=== PATIENT | male | born 1945 | race African-American/Black ===

== ENCOUNTER 2023-06-28 05:09 | Inpatient (IN) | payer MEDICARE, SELFPAY ==
[2023-06-28] VITALS (52 sets, daily range): BP systolic 116–164; BP diastolic 52–87; PULSE 75–97; RESP 9–21; TEMP 36.4–36.6; O2SAT 97–100
--- NOTE | ~2023-06-28 | XR_ITS ---
XR chest 1V portable 06/28/2023 06:06 Indication: Altered mental status Procedure: AP view of the chest Comparison: No prior studies for comparison. Findings: Heart size normal. Emphysema. There is a skinfold overlying the right chest wall. Mildly el evated left diaphragm. No focal air space disease, pulmonary edema, pleural effusion or suspected pne umothorax. Impression: 1: No acute cardiopulmonary disease. Reviewed, dictated and finalized at location A. CTOR OF RECRUITMENT Impression: 1: No acute cardiopulmonary disease.
--- NOTE | ~2023-06-28 | MR_ITS ---
EXAMINATION: MR brain/brain stem wo con DATE: 06/30/2023 09:14 INDICATION: Altered mental status. TECHNIQUE: Magnetic resonance imaging (MRI) of the brain and brainstem was performed without intraven ous contrast. COMPARISON: Head CT 06/28/2023 FINDINGS: There is a small old infarct in right cerebellum. There are old infarcts involving the bila teral basal ganglia and internal capsules and right thalamus. There are scattered areas of nonspecifi c increased T2-weighted signal intensity in the cerebral white matter. There is no intracranial hemor rhage, acute infarction, or abnormal intracranial mass lesion. There is ex vacuo dilatation of the la teral ventricles. The orbits are normal. The paranasal sinuses are clear. The mastoid air cells are n ormal. IMPRESSION: 1. 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 2. Extensive nonspecific cerebral white matter disease, which likely represents chronic small vessel ischemic disease. Reviewed, dictated and finalized at location A. DATION DRILL OPERATOR HELPER IMPRESSION: 1. 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 2. Extensive nonspecific cerebral white matter disease, which likely represents chronic small vessel ischemic disease.
--- NOTE | ~2023-06-28 | CT_ITS ---
EXAMINATION: CT brain wo con DATE: 06/28/2023 05:58 INDICATION: Altered mental status TECHNIQUE: Computed tomography (CT) of the head was performed without intravenous contrast. The dose- length product was 681.00 mGy-cm. Automated exposure control and iterative reconstruction technique w ere employed. COMPARISON: None FINDINGS: Generalized atrophy. Chronic bilateral lacunar infarctions. There are scattered moderate pe riventricular and subcortical white matter changes, most likely related to small vessel ischemic dise ase (microangiopathy). No ventriculomegaly or midline shift. Basilar cisterns are patent. There is in tracranial atherosclerosis. Paranasal sinuses and mastoids are pneumatized. No depressed skull fractu res. IMPRESSION: 1. No acute intracranial abnormality. 2: Chronic bilateral lacunar infarctions. 3: Chronic age-related findings. Reviewed, dictated and finalized at location A. GER ANALYTICAL
--- NOTE | 2023-06-28 05:21 | ECG_ITS ---
Measurements Intervals [place] Rate: 81 P: 74 UT: 134 QRS: -68 QRSD: 135 T: 68 QT: 424 QTc: 494 Interpretive Statements SINUS RHYTHM WITH SINUS ARRHYTHMIA ATRIAL PREMATURE COMPLEX RIGHT BUNDLE BRANCH BLOCK LEFT ANTERIOR FASCICULAR BLOCK CANNOT RULE OUT SEPTAL INFARCT, AGE INDETERMINATE BASELINE ARTIFACT- I, II, V1-V2 ABNORMAL ECG NO PREVIOUS ECG AVAILABLE FOR COMPARISON Electronically Signed On 06-28-2023 6:53:46 WARP DOFFER by Angel Butler D.O.
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
[2023-06-28] MEDS: SODIUM CHLORIDE 0.9% IV 1,000 ML 999 ML IV CONT ×2 (06:51→10:01)
[2023-06-28 07:00] LABS: Basophils Percent Auto 0.3 % (0.2-1.2); Eosinophils Percent Auto 0.1 % (0-4.4); Hematocrit 37.8 % (42.0-52.0); Immature Granulocyte Absolute 0.04 K/mm3 (0.00-0.031); Immature Granulocyte Percent A 0.4 % (0-0.5); Lymphocytes Absolute Auto 1.51 K/mm3 (0.9-3.2); Lymphocytes Percent Auto 13.4 % (18.3-44.2); Mean Corpuscular HGB Conc 31.7 g/dl (32-36); Mean Corpuscular Hemoglobin 29.3 pg (26-34); Mean Corpuscular Volume 92.4 fl (80-100); Mean Platelet Volume 9.1 fl (7.4-10.4); Monocytes Absolute Auto 0.6 K/mm3 (0.1-0.6); Monocytes Percent Auto 5.3 % (2.6-8.5); Neutrophils Absolute Auto 9.1 K/mm3 (1.3-6.7); Neutrophils Percent Auto 80.5 % (45.5-73.1); Platelet Count Result 379 k/mm3 (150-375); Red Blood Count 4.09 M/mm3 (4.6-6.20); Red Cell Distribution Width 14.8 % (11.5-14.5); White Blood Count 11.3 K/mm3 (4.5-10.0)
[2023-06-28 07:10] LABS: Prothrombin Time 13.6 Seconds (11.1-14.7)
[2023-06-28 07:11] LABS: Partial Thromboplastin Time 32.3 SECONDS (22.3-36.8)
[2023-06-28 07:12] LABS: Alanine Aminotransferase 17 U/L (6-50); Albumin Level 4.1 g/dL (3.5-5.1); Alkaline Phosphatase 101 U/L (38-126); Anion Gap 8 mmol/L (8-16); Aspartate Amino Transferase 41 U/L (17-59); Bilirubin,Total 0.8 mg/dL (0.2-1.3); Blood Urea Nitrogen 24 mg/dL (9-20); Calcium 9.8 mg/dL (8.4-10.2); Carbon Dioxide 26 mmol/L (22-30); Chloride 103 mmol/L (98-107); Estimated CRCL calculation 53 ml/min; Estimated Glomerular Filt Rate > 60; Glucose 87 mg/dL (65-110); Lipase 29 U/L (23-300); Magnesium 2.3 mg/dL (1.6-2.3); Potassium 4.3 mmol/L (3.4-5.0); Sodium 137 mmol/L (137-145)
[2023-06-28 07:16] LABS: Lactic Acid Reflex 1.7 mmol/L (0.7-2.0)
[2023-06-28 07:23] LABS: Ethanol < 10 mg/dL (<10)
[2023-06-28 07:24] LABS: Troponin I < 0.012 ng/mL (0.000-0.034)
[2023-06-28 07:37] LABS: Influenza A QL RT-PCR Negative (Negative); Influenza B QL RT-PCR Negative (Negative); RSV RNA, RT-PCR Negative (Negative); SARS-CoV-2 RNA PCR Negative (Negative)
[2023-06-28 07:44] LABS: Procalcitonin 0.3 ng/mL
--- NOTE | 2023-06-28 08:09 | PC.NURSE ---
provider requesting information regarding patient. called patient's brother, Rubén [phone], he states that last known, patient was in [facility] on friday. he was also states he was recently in the hospital in [place] and had a feeding tube placed, however, patient does not currently have a feeding tube and does not have any scars to indicate on was once placed. patient's brother was elderly and states that their sister recently and patient does not have any other family to contact. called [facility] [phone] and was given 2 numbers to call that are in the nearest proximity to the zip code of patient's current home address, as they would not give any patient information called [facility] [phone], left message to return call called [facility] in [facility] [phone], no information was given d/t HIPAA. she did state that she had no information for next of kin but the address of the patient matches the address that they have on file. no further useful information was able to be obtained at this time
--- NOTE | 2023-06-28 09:24 | PC.NURSE ---
attempted to straight cath patient to obtain urine sample. no urine return. bladder scan with 50ml noted. provider aware
[2023-06-28] MEDS: Please add drug allergy info to patient profile. 1 EACH XX (10:02)
--- NOTE | 2023-06-28 10:41 | ECG_ITS ---
Measurements Intervals [place] Rate: 82 P: 54 TX: 104 QRS: -68 QRSD: 138 T: 66 QT: 442 QTc: 516 Interpretive Statements SINUS RHYTHM WITH SINUS ARRHYTHMIA SHORT [place] INTERVAL ATRIAL PREMATURE COMPLEXES RIGHT BUNDLE BRANCH BLOCK LEFT ANTERIOR FASCICULAR BLOCK CANNOT RULE OUT SEPTAL INFARCT, AGE INDETERMINATE BASELINE ARTIFACT- I, II, III, AVR, AVL, V1, V3-V6 ABNORMAL ECG COMPARED TO ECG 06/28/2023 05:46:52 NO SIGNIFICANT CHANGES Electronically Signed On 06-29-2023 7:54:25 PILL MAKER by Angel Butler D.O.
[2023-06-28 11:25] LABS: Appearance Urine Clear (Clear); Bacteria Urine None Seen /hpf; Bilirubin Urine Negative (Negative); Color Urine Yellow (Yellow); Glucose Urine UA Negative (Negative); Ketones Urine 2+ mg/dL (Negative); Leukocyte Esterase Ur 1+ LEU/UL (Negative); Nitrate Urine Negative (Negative); Protein Urine Negative (Negative); Specific Grav Ur 1.016 (1.001-1.035); Squamous Epithelial Cell Urine None seen /hpf (Few); pH Urine 5.5 (5.0-9.0)
[2023-06-28 11:28] LABS: Add Urine Microscopic? YES
--- NOTE | 2023-06-28 11:36 | PC.NURSE ---
called to add on UDS
[2023-06-28 11:44] LABS: Troponin I < 0.012 ng/mL (0.000-0.034)
--- NOTE | 2023-06-28 11:56 | PC.NURSE ---
several attempts at contacting police department in [place], was able to contact lens lathe operator #[id number] at [phone] and he will send someone to his residence and return call with update.
[2023-06-28 12:16] LABS: Barbiturate Screen Urine Negative (Negative); Benzodiazepines Screen Urine Negative (Negative)
[2023-06-28 12:17] LABS: Amphetamine Screen Urine Negative (Negative); Cocaine Screen Urine Negative (Negative); Methadone Screen Urine Negative (Negative); Opiate Screen Urine Negative (Negative); Phencyclidine Screen Urine Negative (Negative)
[2023-06-28 12:25] LABS: Cannabinoid Screen Urine Negative (Negative)
--- NOTE | 2023-06-28 12:47 | PC.NURSE ---
Per PD in [place], patient lives alone and there is no one to contact in regards to him. he does have mental issues and is very familiar to the PD.
[2023-06-28] MEDS: SODIUM CHLORIDE 0.9% IV 1,000 ML 125 ML IV CONT ×2 (13:09→13:55)
--- NOTE | 2023-06-28 13:28 | PM.IMHP ---
H&P: HPI History of Present Illness Date/Time: 06/28/23 13:00 Chief Complaint: Altered mental status. Narrative: This is a 78-year-old male presented to the emergency department via EMS for evaluation of altered mental status. The patient is able to provide some history but is confused and some of the following is obtained a review of his electronic medical records. He was pulled over by police today after he was noted to be driving erratically. He was noted to be confused, thought he was in [place], and police called EMS to bring him in for evaluation. 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 They believe the patient to live alone and are unaware of any contacts he may have. It is my understanding that the patient has lived in [place] as well but is uncertain whether not he is currently living here. ED nurse was able to get in touch with the patient's brother (Rubén [phone]) who indicated the patient was in [place], [place] on Friday but he knew nothing else. The patient had no complaints while in the ED. He was afebrile on arrival with stable vital signs. WBC count was a bit elevated. Chest x-ray was unremarkable. Urine was positive for leukocyte esterase and 11 to 20 WBC but no bacteria were seen on microscopy. Brain CT showed evidence of old infarcts but nothing acute. He is being admitted in this setting for further workup of altered mental status. At the time my evaluation he is alert and oriented x3 (not necessarily alert to situation) but is a poor historian and at times seems to confabulate. He cannot provide an accurate past medical history. He is not completely cooperative with exam either. He has no current complaints and denies headache, focal weakness, paresthesias, chest pain, shortness a breath, nausea, vomiting, dysuria, and diarrhea. He also denies having issues with urinary incontinence but his gown is soaked in urine. Review of Systems Review of Systems: Twelve systems were reviewed and are negative except for as per HPI. [facility] Past Medical History Medical History Medical history unknown Surgical History Surgical History Surgical history unknown Family History Family History (Updated 06/28/23 @ 21:33 by Emma Calzada PA-C) Other Family history unknown Social History Social History (Updated 06/28/23 @ 21:37 by Emma Calzada PA-C) Smoking status: Unknown if ever smoked Alcohol intake: current Alcohol use details: Occasional beer. Substance use: unknown Additional living arrangements comments: Unclear as to where the patient is currently living. Additional occupation/education comments: Patient was in the [employer] and was stationed in [place] during for 4 months. 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 Meds Home Medications and Allergies Allergies Allergy/AdvReac Type Severity Reaction Status Date / Time No Known Allergies Allergy Verified 06/28/23 14:59 Vital Signs Vital Signs - 24 hr 06/28/23 05:09 06/28/23 05:20 06/28/23 05:21 Temperature 97.8 F Pulse Rate 93 86 Respiratory Rate 20 Blood Pressure 125/66 Pulse Oximetry 100 100 Oxygen Delivery Room Air Room Air 06/28/23 06:27 06/28/23 05:19 06/28/23 05:30 Temperature Pulse Rate 83 85 90 Respiratory Rate 12 13 20 Blood Pressure 116/60 Pulse Oximetry 100 100 Oxygen Delivery 06/28/23 05:45 06/28/23 06:07 06/28/23 06:09 Temperature Pulse Rate 84 91 85 Respiratory Rate 16 16 Blood Pressure 117/65 Pulse Oximetry 99 99 99 Oxygen Delivery 06/28/23 06:15 06/28/23 06:16 06/28/23 06:30 Temperature Pulse Rate 97 90 89 Respiratory Rate 13 15 13 Blood Pressure 116/58 L Pulse
[2023-06-28 14:50] LABS: Ammonia < 9 umol/L (9-30)
--- NOTE | 2023-06-28 14:58 | ADMGEN ---
This patient, Giovani Patricia, was admitted to [facility] Surg Room 333-01. Patient/family oriented to hospital policies and general routines including ID bracelet, bed and alarms, visiting hours, pain management, procedures, bathroom and other care routines, personal items, smoking policy, room service/diet, and visiting hours. Information on how to activate the Rapid Response Team has been discussed. Patient/Family are encouraged to report perceived risks to care and to ask questions if they do not understand what they are told or what they should do.
[2023-06-28 15:00] LABS: Erythrocyte Sedimentation Rate 38 mm/hr (0-20)
--- NOTE | 2023-06-28 15:07 | PC.NURSE ---
Admission done to the best of my ability. Pt is disoriented, unable to comprehend and cannot provide any history. Pt's brother, next of kin, Rubén, is also a poor historian. Limited information given about the patient. Will get Care Coordination on board for discharge planning.
[2023-06-28 16:12] LABS: Iron 88 ug/dL (49-181)
[2023-06-28 16:16] LABS: CRP 1.1 mg/dL (<1.0)
[2023-06-28 16:24] LABS: Percent Iron Saturation 33 % (20-50)
[2023-06-28 16:46] LABS: Thyroid Stimulating Hormone Reflex 0.937 uIU/mL (0.465-4.68)
[2023-06-29] VITALS (9 sets, daily range): BP systolic 113–132; BP diastolic 55–69; PULSE 59–78; RESP 16–18; TEMP 36.2–36.4; O2SAT 97–100
[2023-06-29 07:17] LABS: Hematocrit 35.7 % (42.0-52.0); Hemoglobin 11.1 g/dL (14.0-18.0); Mean Corpuscular HGB Conc 31.1 g/dl (32-36); Mean Corpuscular Hemoglobin 29.6 pg (26-34); Mean Corpuscular Volume 95.2 fl (80-100); Mean Platelet Volume 9.2 fl (7.4-10.4); Platelet Count Result 325 k/mm3 (150-375); Red Blood Count 3.75 M/mm3 (4.6-6.20); Red Cell Distribution Width 15.1 % (11.5-14.5); White Blood Count 5.9 K/mm3 (4.5-10.0)
[2023-06-29 07:28] LABS: Anion Gap 4 mmol/L (8-16); Blood Urea Nitrogen 18 mg/dL (9-20); Carbon Dioxide 24 mmol/L (22-30); Chloride 108 mmol/L (98-107); Estimated CRCL calculation 38 ml/min; Estimated Glomerular Filt Rate > 60; Glucose 76 mg/dL (65-110); Magnesium 2.4 mg/dL (1.6-2.3); Potassium 4.1 mmol/L (3.4-5.0); Sodium 136 mmol/L (137-145)
[2023-06-29] MEDS: ENOXAPARIN 40 MG/0.4 ML SYRINGE SUB-Q (08:51)
--- NOTE | 2023-06-29 14:21 | PM.IMPN ---
Progress Note: A&P Assessment and Plan (1) Mild dehydration: Code(s): E86.0 - Dehydration Status: Acute (2) Abnormal urinalysis: Code(s): R82.90 - Unspecified abnormal findings in urine Status: Acute (3) Altered mental status: Qualifiers: Altered mental status type: disorientation Qualified Code(s): R41.0 - Disorientation, unspecified Code(s): R41.82 - Altered mental status, unspecified Status: Acute (4) UTI (urinary tract infection): Qualifiers: Urinary tract infection type: site unspecified Hematuria presence: without hematuria Qualified Code(s): N39.0 - Urinary tract infection, site not specified Code(s): N39.0 - Urinary tract infection, site not specified Status: Acute (5) Dementia: Qualifiers: Dementia type: unspecified type Dementia severity: unspecified severity Dementia behavioral or psychological symptom: unspecified whether behavioral, psychotic, or mood disturbance or anxiety Qualified Code(s): F03.90 - Unspecified dementia, unspecified severity, without behavioral disturbance, psychotic disturbance, mood disturbance, and anxiety Code(s): F03.90 - Unspecified dementia, unspecified severity, without behavioral disturbance, psychotic disturbance, mood disturbance, and anxiety Status: Acute (6) Hypokalemia: Code(s): E87.6 - Hypokalemia Status: Acute (7) Anemia: Qualifiers: Anemia type: unspecified type Qualified Code(s): D64.9 - Anemia, unspecified Code(s): D64.9 - Anemia, unspecified Status: Acute Plan AMS -Secondary to Dementia??UTI?? -R/O TIA/Stroke -CT head negative -MRI pending -Lipid panel pending UTI -Leukocyte + -Culture pending -IV fluids -Ceftriaxone Hypokalemia -3.1 replenished -trend and replenish as need Anemia -Stable hgb 11.1 -B12 pending Code status: Full code per patient DVT prophylaxis: Lovenox Stress ulcer prophylaxis: Protonix 40 daily PT/OT notes: PT/OT pending Disposition: Patient admitted do to AMS and found by police for erratic behavior from [place]. Spoke with family and CC will begin to coordinate discharge with them currently looking for patient truck. Will attempt to get medical records. Family contacts: Simran Gould: -ex- [place]: [phone]-Ydqraee Hugo: [phone]-[place] Time Spent With Patient Time with patient: Greater than 35 minutes Subjective Date/time seen: 06/29/23 14:21 Interval history: Chief Complaint: Altered mental status. Narrative: This is a 78-year-old male presented to the emergency department via EMS for evaluation of altered mental status. The patient is able to provide some history but is confused and some of the following is obtained a review of his electronic medical records. He was pulled over by police today after he was noted to be driving erratically. He was noted to be confused, thought he was in [place], and police called EMS to bring him in for evaluation. 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 They believe the patient to live alone and are unaware of any contacts he may have. It is my understanding that the patient has lived in [place] as well but is uncertain whether not he is currently living here. ED nurse was able to get in touch with the patient's brother (Rubén [phone]) who indicated the patient was in [place], [place] on Friday but he knew nothing else. The patient had no complaints while in the ED. He was afebrile on arrival with stable vital signs. WBC count was a bit elevated. Chest x-ray was unremarkable. Urine was positive for leukocyte esterase and 11 to 20 WBC but no bacteria were seen on microscopy. Brain CT showed evidence of
[2023-06-29] MEDS: QUEtiapine FUMARATE XR 50 MG TAB.ER.24H PO (22:08)
[2023-06-30] VITALS: PULSE 76
[2023-06-30 04:00] VITALS: PULSE 78
[2023-06-30 05:34] VITALS: BP 123/76; PULSE 76; RESP 16; TEMP 36.5; O2SAT 96
[2023-06-30 06:15] LABS: Basophils Percent Auto 0.5 % (0.2-1.2); Eosinophils Percent Auto 0.1 % (0-4.4); Hemoglobin 10.6 g/dL (14.0-18.0); Immature Granulocyte Absolute 0.02 K/mm3 (0.00-0.031); Immature Granulocyte Percent A 0.2 % (0-0.5); Lymphocytes Absolute Auto 2.88 K/mm3 (0.9-3.2); Lymphocytes Percent Auto 32.5 % (18.3-44.2); Mean Corpuscular HGB Conc 31.2 g/dl (32-36); Mean Corpuscular Hemoglobin 29.4 pg (26-34); Mean Corpuscular Volume 94.2 fl (80-100); Mean Platelet Volume 9.2 fl (7.4-10.4); Monocytes Absolute Auto 0.7 K/mm3 (0.1-0.6); Neutrophils Absolute Auto 5.2 K/mm3 (1.3-6.7); Neutrophils Percent Auto 58.7 % (45.5-73.1); Platelet Count Result 314 k/mm3 (150-375); Red Blood Count 3.61 M/mm3 (4.6-6.20); Red Cell Distribution Width 14.7 % (11.5-14.5); White Blood Count 8.9 K/mm3 (4.5-10.0)
[2023-06-30 06:28] LABS: Alanine Aminotransferase 13 U/L (6-50); Albumin Level 3.2 g/dL (3.5-5.1); Alkaline Phosphatase 74 U/L (38-126); Anion Gap 4 mmol/L (8-16); Aspartate Amino Transferase 38 U/L (17-59); Bilirubin,Total 0.4 mg/dL (0.2-1.3); Blood Urea Nitrogen 16 mg/dL (9-20); Calcium 8.9 mg/dL (8.4-10.2); Carbon Dioxide 25 mmol/L (22-30); Chloride 106 mmol/L (98-107); Cholesterol 149 mg/dL (0-200); Estimated CRCL calculation 40 ml/min; Estimated Glomerular Filt Rate > 60; Glucose 104 mg/dL (65-110); HDL Direct 46 mg/dL; Potassium 3.6 mmol/L (3.4-5.0); Sodium 135 mmol/L (137-145); Triglycerides 88 mg/dL (<150)
[2023-06-30 06:39] LABS: LDL Cholesterol Direct 69 mg/dL
[2023-06-30 08:00] VITALS: PULSE 76; RESP 16; O2SAT 96
--- NOTE | 2023-06-30 14:05 | PM.DS ---
DS: Admitting Diagnosis Discharge Date 06/30/23 Admitting Diagnosis AMS DS: Discharge Diagnosis Discharge Diagnosis (1) Mild dehydration: Code(s): E86.0 - Dehydration Status: Acute (2) Abnormal urinalysis: Code(s): R82.90 - Unspecified abnormal findings in urine Status: Acute (3) Altered mental status: Qualifiers: Altered mental status type: disorientation Qualified Code(s): R41.0 - Disorientation, unspecified Code(s): R41.82 - Altered mental status, unspecified Status: Acute (4) UTI (urinary tract infection): Qualifiers: Hematuria presence: without hematuria Urinary tract infection type: site unspecified Qualified Code(s): N39.0 - Urinary tract infection, site not specified Code(s): N39.0 - Urinary tract infection, site not specified Status: Acute (5) Dementia: Qualifiers: Dementia type: unspecified type Dementia severity: unspecified severity Dementia behavioral or psychological symptom: unspecified whether behavioral, psychotic, or mood disturbance or anxiety Qualified Code(s): F03.90 - Unspecified dementia, unspecified severity, without behavioral disturbance, psychotic disturbance, mood disturbance, and anxiety Code(s): F03.90 - Unspecified dementia, unspecified severity, without behavioral disturbance, psychotic disturbance, mood disturbance, and anxiety Status: Acute (6) Hypokalemia: Code(s): E87.6 - Hypokalemia Status: Acute (7) Anemia: Qualifiers: Anemia type: unspecified type Qualified Code(s): D64.9 - Anemia, unspecified Code(s): D64.9 - Anemia, unspecified Status: Acute Plan AMS -Secondary to Dementia -R/O TIA/Stroke -CT head negative -MRI Old infarcts cerebral ischemia -Lipid panel -Started on aspirin 81mg daily and atorvastatin UTI -Ruled Out Patient was discharge home with Family DS: Summary Hospital Course Reason for hospitalization: AMS Hospital Course: Date/time seen: 06/29/23? 14:21 Interval history: Chief Complaint: Altered mental status. Narrative: This is a 78-year-old male presented to the emergency department via EMS for evaluation of altered mental status. The patient is able to provide some history but is confused and some of the following is obtained a review of his electronic medical records. He was pulled over by police today after he was noted to be driving erratically. He was noted to be confused, thought he was in [place], and police called EMS to bring him in for evaluation. 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 They believe the patient to live alone and are unaware of any contacts he may have. It is my understanding that the patient has lived in [place] as well but is uncertain whether not he is currently living here. ED nurse was able to get in touch with the patient's brother (Rubén [phone]) who indicated the patient was in [place], [place] on Friday but he knew nothing else. The patient had no complaints while in the ED. He was afebrile on arrival with stable vital signs. WBC count was a bit elevated. Chest x-ray was unremarkable. Urine was positive for leukocyte esterase and 11 to 20 WBC but no bacteria were seen on microscopy. Brain CT showed evidence of old infarcts but nothing acute. He is being admitted in this setting for further workup of altered mental status. At the time my evaluation he is alert and oriented x3 (not necessarily alert to situation) but is a poor historian and at times seems to confabulate. He cannot provide an accurate past medical history. He is not completely cooperative with exam either. He has no current complaints and denies headache, focal weakness, paresthesias, chest pain, shortness a breath, nausea, vomiting, d
[2023-07-02 14:47] LABS: Methylmalonic Acid 172 nmol/L (87-318)
== END 2023-06-30 13:19 | disposition other institution (70) | DRG 884 ==
LOC: ANHED 11:48 → ANH3MEDSUR 12:58
PROVIDERS: Physician Assistant; Admitting Provider Internal Medicine; Emergency Provider Emergency Medicine; Visit Provider Nurse Practitioner Family
DX: F03.90 Unspecified dementia, unspecified severity, without behavioral disturbance, psychotic disturbance, mood disturbance, and anxiety (principal); I67.82 Cerebral ischemia; E86.0 Dehydration; E87.6 Hypokalemia; D64.9 Anemia, unspecified; F43.10 Post-traumatic stress disorder, unspecified; F22 Delusional disorders; Z20.822 Contact with and (suspected) exposure to COVID-19; Z86.73 Personal history of transient ischemic attack (TIA), and cerebral infarction without residual deficits
CPT/HCPCS: 36415; 70450; 70551; 71045; 80048; 80053; 80061; 80307; 81001; 82140; 82607; 82728; 82746; 83540; 83550; 83605; 83690; 83735; 83921; 84145; 84443; 84484; 85025; 85027; 85610; 85652; 85730; 86140; 87040; 87086; 87637; 93005; 96361; 96365; 96372; 96376; 97161; 97165; 99285; A9270; G0378; J0696; J1650; J7030